=== PATIENT | female | born 1990 | race Hispanic/Latino ===

== ENCOUNTER 2016-11-07 18:43 | Emergency (ER) | payer MEDICAID, OTHER ==
[2016-11-07 19:08] VITALS: BP 122/71; PULSE 86; RESP 16; TEMP 98.2; O2SAT 100
--- NOTE | 2016-11-07 19:55 | ED PDOC ---
Lower Extremity Pain/Injury Time Seen by Provider: 11/07/16 19:53 Chief Complaint (Nursing): Lower Extremity Problem/Injury Chief Complaint (Provider): ankle pain History Per: Patient History/Exam Limitations: no limitations - Ankle/Foot Feet: 1 - ankle swelling-sustained after trip and twist of ankle earlier today with increased swelling pain unable to bear wght no tingling no numbness to ankle. skin intact. Past Medical History Reviewed: Historical Data, Nursing Documentation, Vital Signs Vital Signs: Last Vital Signs Temp 98.2 F 11/07/16 19:05 Pulse 86 11/07/16 19:05 Resp 16 11/07/16 19:05 BP 122/71 11/07/16 19:05 Pulse Ox 100 11/07/16 19:05 - Medical History PMH: No Chronic Diseases - Family History Family History: States: No Known Family Hx - Home Medications Home Medications: Ambulatory Orders Medication Instructions Recorded Ibuprofen [Motrin] 400 mg PO Q6 #30 tab 11/07/16 - Allergies Allergies/Adverse Reactions: Allergies Allergy/AdvReac Type Severity Reaction Status Date / Time No Known Allergies Allergy Verified 11/07/16 19:07 Review of Systems Musculoskeletal: Positive for: Other (ankle pain) Physical Exam - Reviewed Nursing Documentation Reviewed: Yes Vital Signs Reviewed: Yes - Physical Exam Appears: Positive for: Well, Non-toxic, No Acute Distress Skin: Positive for: Normal Color, Warm, DRY Cardiovascular/Chest: Positive for: Regular Rate, Rhythm Respiratory: Positive for: CNT, Normal Breath Sounds Extremity: Positive for: Other (right ankle: swelling to medial malleious, pain with ROM, nuerovascc intact no ertyhema skin intact. ) Neurologic/Psych: Positive for: Alert, Oriented - ECG O2 Sat by Pulse Oximetry: 100 - Radiology X-Ray: Interpreted by Me (? fx. ) Medical Decision Making Medical Decision Making: impression: motrin given for pain. xray negative for fx advised to f.u with podiatry gien aircast and crtuches. motrin for pain and ORTHO RICE. Disposition - Clinical Impression Clinical Impression: Ankle sprain - Patient ED Disposition Is Patient to be Admitted: No Counseled Patient/Family Regarding: Studies Performed, Diagnosis, Need For Followup, Rx Given - Disposition Referrals: Podiatry Clinic [Outside] Disposition: Routine/Home Disposition Time: 19:58 Condition: STABLE Prescriptions: Ibuprofen [Motrin] 400 mg PO Q6 #30 tab Instructions: Ankle Sprain (ED) Forms: [facility] ED School/Work Excuse
--- NOTE | 2016-11-08 11:46 | RAD ---
PROCEDURE: Right Ankle Radiographs. HISTORY: ankle pain COMPARISON: None FINDINGS: BONES: No definitive radiographic evidence of acute displaced fracture nor dislocation. The talar dome intact. JOINTS: Ankle mortise maintained. No significant osteoarthritis. SOFT TISSUES: Mild bilateral soft tissue swelling. OTHER FINDINGS: None. IMPRESSION: No evidence of acute displaced fracture nor dislocation. The osseous structures intact. If symptoms persist or occult fracture suspected clinically recommend repeat radiographs in 5-10 days as most fractures should become radiographically evident in this timeframe.
== END 2016-11-07 20:26 | disposition home or self-care (01) ==
LOC: H.ER 18:43
DX: S93.401A Sprain of unspecified ligament of right ankle, initial encounter (principal); X50.9XXA Other and unspecified overexertion or strenuous movements or postures, initial encounter; Y92.89 Other specified places as the place of occurrence of the external cause